=== PATIENT | male | born 1925 | race Caucasian/White ===

== ENCOUNTER 2017-01-25 06:40 | Emergency (ER) | payer MEDICARE, OTHER | END 2017-01-25 08:58 | disposition home or self-care (01) | LOC: D.ER 06:40 | DX: S00.03XA Contusion of scalp, initial encounter (principal); W19.XXXA Unspecified fall, initial encounter; Y93.89 Activity, other specified; Y92.89 Other specified places as the place of occurrence of the external cause; S91.202A Unspecified open wound of left great toe with damage to nail, initial encounter; I25.10 Atherosclerotic heart disease of native coronary artery without angina pectoris; I10 Essential (primary) hypertension; Z86.73 Personal history of transient ischemic attack (TIA), and cerebral infarction without residual deficits ==